=== PATIENT | male | born 1950 | race Two or more races ===

== ENCOUNTER 2016-10-16 12:11 | Emergency (ER) | payer OTHER ==
[~2016-10-16] VITALS: Ht 175.3 cm; Wt 89.4 kg
[~2016-10-16 12:11] MED LIST: FERR1TAB17 PO; HYDR-3682 PO; LIS5T PO; ONDA4TAB5 PO; TRAM50TA2 PO; TRIA0.1P11 TOP; VENL75TA PO
[2016-10-16 12:16] VITALS: BP 137/94
== END 2016-10-16 14:20 | disposition left against medical advice (07) ==
LOC: EDUNIT# 12:11 → ER 12:24
DX: G89.29 Other chronic pain (principal); M54.9 Dorsalgia, unspecified; Z53.21 Procedure and treatment not carried out due to patient leaving prior to being seen by health care provider